=== PATIENT | male | born 2005 | race Two or more races ===

== ENCOUNTER 2024-06-21 14:51 | Observation (INO) ==
[2024-06-21 15:38] LABS: Rapid Strep Molecular Negative (Negative)
[2024-06-21 15:48] LABS: ABS Basophils 0.1 10^3/uL (0.0-0.1); ABS Eosinophils 0.2 10^3/uL (0.0-0.5); ABS Lymphocytes 1.1 10^3/uL (1.0-4.8); ABS Monocytes 0.6 10^3/uL (0.0-1.1); ABS Neutrophils 8.7 10^3/uL (1.5-7.6); ABS Nucleated RBC 0.02 10^3/ul; Eosinophil % 1.7 %; Hematocrit 41.8 % (38-53); Lymphocyte % 10.3 %; Mean Corpuscular Hemoglobin 28.1 pg (27-33); Mean Corpuscular Hgb Conc 35.8 g/dL (31-36); Mean Corpuscular Volume 78.5 fL (80-97); Mean Platelet Volume 7.2 fL (7.5-11.2); Nucleated Red Blood Cells % 0.2 %/100WBC (0.0-0.8); Platelet Count 367 10^3/uL (150-450); Red Blood Count 5.33 10^6/uL (4.06-5.63); Red Cell Distribution Width 13.9 % (12-17); White Blood Count 10.7 10^3/uL (3.6-10.2)
[2024-06-21] MEDS: Albuterol/Ipratropium NEB.SOL (2.5/0.5 MG) 3 ML NEB.SOLN INH ONE (15:57)
[2024-06-21] MEDS: Lactated Ringers 1000 ml BAG IV.FLUID IV ONE (15:58)
[2024-06-21] MEDS: methylPREDNISolone SOD SUCC 125 mg 2 ML VIAL IV ONE (15:58)
[2024-06-21] MEDS: cefTRIAXone 1 gm/50 mL D5W 1 GM/50 ML BAG IV ONE (16:07)
[2024-06-21 16:27] LABS: Albumin 4.4 g/dL (3.2-5.2); Albumin/Globulin Ratio 1.4 (1-3); C Reactive Protein 78.19 mg/L (<8.01); Calcium 9.3 mg/dL (8.6-10.3); Creatinine, Serum 0.76 mg/dL (0.67-1.17); Globulin 3.2 g/dL (2-4); Potassium 3.8 mmol/L (3.5-5.0); Total Bilirubin 1.8 mg/dL (0.2-1.0); Total Protein 7.6 g/dL (6.4-8.9)
[2024-06-21] MEDS ORDERED: Polyethylene Glycol 3350 17 GM PACKET PO PRN (17:39)
[2024-06-21] MEDS ORDERED: Al Hydrox/Mg Hydrox/Simet LIQ 30 ML UDC PO PRN (17:39)
[2024-06-21] MEDS ORDERED: Ondansetron 4 mg VIAL 2 MG/ML 2 ml VIAL IV PRN (17:39)
[2024-06-21] MEDS: Iohexol 350 (CONTRAST) 500 ML MDV IV ONE (17:42)
[2024-06-21] MEDS: Azithromycin 500 mg/250 ml NS 500 MG/250 ML BAG IVPB SCH (18:47)
[2024-06-21] MEDS: NS 0.9% 1000 ml BAG 1,000 ML IV SCH (18:47)
[2024-06-21] MEDS: Benzocaine/Menthol LOZ PO PRN (22:34)
[2024-06-22] MEDS: DOXYcycline 100 MG in NS 0.9% 250 ml 250 ML IVPB SCH (11:19)
[2024-06-22] MEDS: Albuterol 2.5mg/3 ml (0.083%) NEB.SOLN INH PRN (13:54)
[2024-06-22] MEDS: Albuterol HFA INHALER 8 gm MDI INH PRN (14:46)
[2024-06-22] MEDS: cefTRIAXone 1 gm/50 mL D5W 1 GM/50 ML BAG IV SCH (16:13)
[2024-06-23 09:41] VITALS: BP 122/81
== END 2024-06-23 13:20 | disposition home or self-care (01) ==
LOC: EDHOLD 14:51 → ED 14:51 → MED 20:30
PROVIDERS: ADMIT Internal Medicine; ATTEND Internal Medicine